=== PATIENT | female | born 1955 | race Caucasian/White ===

== ENCOUNTER → 2017-10-09 | Outpatient (CLI) | payer MEDICAID ==
[~2017-10-09] MED LIST: ACET-784 PO; ASPI-556 PO; CARB100C4 PO; DIVA250T25 PO; DOCU-119 PO; FAMO20TA8 PO; FERR324T4 PO; FLUO-191 PO; FLUP10 PO; FOLI1TAB15 PO; FURO20 PO; METO25 PO; MULT1TAB70 PO; POTA8TAB4 PO; SIMV20TA6 PO; THIO50 PO; TRAZ150T79 PO; TRIH2TAB3 PO
[2017-10-09 17:36] LABS: HEMATOCRIT 32.2 % (36-46); HEMOGLOBIN 11.1 g/dL (12.0-16.0)
[2017-10-09 17:38] LABS: CREATININE,URINE RANDOM 35.3 mg/dL (30.0-125.0)
[2017-10-09 17:44] LABS: CREATININE 2.21 mg/dL (0.60-1.30)
== END | disposition home or self-care (01) ==
LOC: LABPV 15:21
PROVIDERS: ATTEND Internal Medicine Nephrology
DX: D56.5 Hemoglobin E-beta thalassemia (principal); R79.89 Other specified abnormal findings of blood chemistry
CPT/HCPCS: 82570; 84156; 85014; 85018

== ENCOUNTER 2019-02-04 19:12 | Inpatient (IN) | payer MEDICAID, OTHER ==
[~2019-02-04] VITALS: Ht 157.5 cm; Wt 57.5 kg
[~2019-02-04 19:12] MED LIST changes: +DIVA-53 PO; -DIVA250T25 PO
[2019-02-04] MEDS ORDERED: SODIUM CHLORIDE 0.9% 1,000 ML IV ONE ×2 (20:15→22:00)
[2019-02-04 20:20] LABS: BASOPHILS % (AUTO) 0.8 % (0.0-2.0); EOSINOPHILS % (AUTO) 0.1 % (1.0-6.0); HEMATOCRIT 40.2 % (36-46); HEMOGLOBIN 13.2 g/dL (12.0-16.0); LYMPHOCYTES # (AUTO) 2.1 K/uL (1.0-4.8); LYMPHOCYTES % (AUTO) 21.7 % (22.0-44.0); MEAN CORPUSCULAR HEMOGLOBIN 32.2 pg (26.0-34.0); MEAN CORPUSCULAR HGB CONC 32.9 G/dL (31.0-37.0); MEAN CORPUSCULAR VOLUME 98 fL (80-100); MONOCYTES # (AUTO) 1.2 K/uL (0.1-1.0); MONOCYTES % (AUTO) 11.9 % (2.0-9.0); NEUTROPHILS # (AUTO) 6.3 K/uL (1.8-7.7); NEUTROPHILS % (AUTO) 65.5 % (40.0-70.0); PLATELET COUNT (AUTO) 271 K/uL (150-450); RED BLOOD CELL COUNT(AUTO) 4.11 MIL/uL (4.00-5.20); RED CELL DISTRIBUTION WIDTH 12.6 % (11.5-14.5)
[2019-02-04 20:30] LABS: CALCIUM, TOTAL 10.4 mg/dL (8.8-10.5); CREATININE 2.67 mg/dL (0.60-1.30); POTASSIUM 3.3 mmol/L (3.5-5.1)
[2019-02-04 20:37] LABS: TROPONIN I 0.17 ng/mL (0.00-0.05)
[2019-02-04 20:44] LABS: PROTHROMBIN TIME 10.2 SEC (9.4-11.6)
[2019-02-04 20:56] LABS: ALBUMIN 3.9 g/dL (3.4-5.0); BILIRUBIN,TOTAL 0.4 mg/dL (0.1-1.0); TOTAL PROTEIN, SERUM 7.5 g/dL (6.4-8.2)
[2019-02-04] MEDS ORDERED: ONDANSETRON HCL 4 MG/2 ML VIAL IVP PRN (22:00)
[2019-02-04] MEDS ORDERED: 0.9% SODIUM CHLORIDE 10 ML SYRINGE IVP PRN (22:00)
[2019-02-04] MEDS ORDERED: ACETAMINOPHEN 325 MG TABLET PO PRN (22:00)
[2019-02-04 22:21] LABS: APPEARANCE,URINE CLOUDY (CLEAR); BILIRUBIN,URINE NEGATIVE (NEGATIVE); GLUCOSE, URINE (UA) NEGATIVE (NEGATIVE); KETONES,URINE NEGATIVE (NEGATIVE); LEUKOCYTE ESTERASE ,URINE LARGE (NEGATIVE); OCCULT BLOOD,URINE SMALL (NEGATIVE); PROTEIN,URINE NEGATIVE (NEGATIVE); UROBILINOGEN,URINE 0.2 mg/dL (<=1.0)
[2019-02-04 22:48] LABS: BACTERIA,URINE Many /HPF (None Seen); NITRATE,URINE POSITIVE (NEGATIVE); SQUAMOUS EPITHELIAL CELL,UR Few /LPF (None Seen); WBC,URINE 26-50 /HPF (0-5)
[2019-02-05] MEDS: HEPARIN SODIUM,PORCINE 5,000 UNITS/ML VIAL SQ SCH ×4 (00:42→23:29)
[2019-02-05] MEDS: CefTRIAXone 1 GM/DEXTROSE 50 ML IV SCH ×2 (00:42→23:29)
[2019-02-05] MEDS ORDERED: ONDANSETRON HCL 4 MG/2 ML VIAL IVP PRN ×2 (00:45)
[2019-02-05] MEDS ORDERED: ACETAMINOPHEN 325 MG TABLET PO PRN (00:45)
[2019-02-05] MEDS ORDERED: CefTRIAXone 1 GM/DEXTROSE 50 ML IV SCH ×2 (00:45→01:00)
[2019-02-05] MEDS ORDERED: BISACODYL 10 MG RECTAL RECTAL SUPPOSITORY PR PRN ×2 (00:45)
[2019-02-05] MEDS ORDERED: ALBUTEROL SULFATE 2.5 MG/0.5 ML NEB SOLUTION NEB PRN ×2 (00:45)
[2019-02-05] MEDS ORDERED: ZOLPIDEM TARTRATE 5 MG TABLET PO PRN ×2 (00:45)
[2019-02-05] MEDS ORDERED: IPRATROPIUM BROMIDE 0.5 MG/2.5 ML NEB SOLUTION NEB PRN ×2 (00:45)
[2019-02-05] MEDS ORDERED: MAGNESIUM HYDROXIDE SUSPENSION 30 ML UDCUP PO PRN ×2 (00:45)
[2019-02-05 04:00] VITALS: BP 130/77
[2019-02-05 06:10] LABS: BASOPHILS % (AUTO) 0.9 % (0.0-2.0); EOSINOPHILS % (AUTO) 0.6 % (1.0-6.0); HEMATOCRIT 34.6 % (36-46); HEMOGLOBIN 11.3 g/dL (12.0-16.0); LYMPHOCYTES # (AUTO) 2.7 K/uL (1.0-4.8); LYMPHOCYTES % (AUTO) 30.4 % (22.0-44.0); MEAN CORPUSCULAR HEMOGLOBIN 32.4 pg (26.0-34.0); MEAN CORPUSCULAR HGB CONC 32.6 G/dL (31.0-37.0); MEAN CORPUSCULAR VOLUME 100 fL (80-100); MONOCYTES % (AUTO) 11.6 % (2.0-9.0); NEUTROPHILS % (AUTO) 56.5 % (40.0-70.0); PLATELET COUNT (AUTO) 219 K/uL (150-450); RED BLOOD CELL COUNT(AUTO) 3.48 MIL/uL (4.00-5.20); RED CELL DISTRIBUTION WIDTH 12.6 % (11.5-14.5)
[2019-02-05 06:26] LABS: ALBUMIN 3.4 g/dL (3.4-5.0); BILIRUBIN,TOTAL 0.2 mg/dL (0.1-1.0); CALCIUM, TOTAL 9.3 mg/dL (8.8-10.5); CREATININE 2.19 mg/dL (0.60-1.30); POTASSIUM 3.4 mmol/L (3.5-5.1)
[2019-02-05 08:00] VITALS: BP 119/62
[2019-02-05] MEDS ORDERED: HEPARIN SODIUM,PORCINE 5,000 UNITS/ML VIAL SQ SCH (08:00)
[2019-02-05] MEDS: FERROUS SULFATE 325 MG EC TABLET PO SCH (08:00)
[2019-02-05] MEDS: DOCUSATE SODIUM 100 MG CAPSULE PO SCH ×2 (08:56→19:59)
[2019-02-05] MEDS: POTASSIUM CHLORIDE 8 MEQ ER TABLET PO SCH (08:56)
[2019-02-05] MEDS: FAMOTIDINE 20 MG TABLET PO SCH (08:57)
[2019-02-05] MEDS: FOLIC ACID 1 MG TABLET PO SCH (08:57)
[2019-02-05] MEDS: MULTIVITAMINS, THERAPEUTIC TABLET PO SCH (08:57)
[2019-02-05] MEDS: METOPROLOL TARTRATE 25 MG TABLET PO SCH ×2 (08:57→19:59)
[2019-02-05] MEDS: ASPIRIN 81 MG EC TABLET PO SCH (08:57)
[2019-02-05] MEDS: FUROSEMIDE 20 MG TABLET PO SCH (08:58)
[2019-02-05] MEDS ORDERED: DOCUSATE SODIUM 100 MG CAPSULE PO SCH ×2 (09:00)
[2019-02-05] MEDS ORDERED: PNEUMOCOCCAL VACCINE POLYVALENT 0.5 ML VIAL [PPSV23] IM ONE (11:00)
[2019-02-05 12:00] VITALS: BP 116/63
[2019-02-05] MEDS ORDERED: SODIUM CHLORIDE 0.9% 1,000 ML IV ONE (14:15)
[2019-02-05 17:07] VITALS: BP 118/63
[2019-02-05] MEDS: ACETAMINOPHEN 325 MG TABLET PO PRN (19:58)
[2019-02-05] MEDS: SIMVASTATIN 20 MG TABLET PO SCH (19:59)
[2019-02-05 20:04] VITALS: BP 120/52
[2019-02-05 23:38] VITALS: BP 109/49
[2019-02-06 01:17] VITALS: BP 109/65
[2019-02-06 05:03] VITALS: BP 99/56
[2019-02-06 07:31] LABS: BASOPHILS % (AUTO) 0.6 % (0.0-2.0); EOSINOPHILS % (AUTO) 2.2 % (1.0-6.0); HEMATOCRIT 31.1 % (36-46); HEMOGLOBIN 10.3 g/dL (12.0-16.0); LYMPHOCYTES # (AUTO) 1.5 K/uL (1.0-4.8); LYMPHOCYTES % (AUTO) 20.3 % (22.0-44.0); MEAN CORPUSCULAR HEMOGLOBIN 32.6 pg (26.0-34.0); MEAN CORPUSCULAR VOLUME 99 fL (80-100); MONOCYTES # (AUTO) 0.6 K/uL (0.1-1.0); MONOCYTES % (AUTO) 8.1 % (2.0-9.0); NEUTROPHILS % (AUTO) 68.8 % (40.0-70.0); PLATELET COUNT (AUTO) 181 K/uL (150-450); RED BLOOD CELL COUNT(AUTO) 3.15 MIL/uL (4.00-5.20); RED CELL DISTRIBUTION WIDTH 12.4 % (11.5-14.5)
[2019-02-06 08:08] LABS: CREATININE 1.66 mg/dL (0.60-1.30); POTASSIUM 3.1 mmol/L (3.5-5.1)
[2019-02-06 08:10] VITALS: BP 100/58
[2019-02-06] MEDS: FUROSEMIDE 20 MG TABLET PO SCH (08:45)
[2019-02-06] MEDS: DOCUSATE SODIUM 100 MG CAPSULE PO SCH ×2 (08:45→20:46)
[2019-02-06] MEDS: POTASSIUM CHLORIDE 8 MEQ ER TABLET PO SCH (08:45)
[2019-02-06] MEDS: HEPARIN SODIUM,PORCINE 5,000 UNITS/ML VIAL SQ SCH ×2 (08:45→17:40)
[2019-02-06] MEDS: METOPROLOL TARTRATE 25 MG TABLET PO SCH ×2 (08:45→21:00)
[2019-02-06] MEDS: FAMOTIDINE 20 MG TABLET PO SCH (08:45)
[2019-02-06] MEDS: FERROUS SULFATE 325 MG EC TABLET PO SCH (08:46)
[2019-02-06] MEDS: ASPIRIN 81 MG EC TABLET PO SCH (08:46)
[2019-02-06] MEDS: MULTIVITAMINS, THERAPEUTIC TABLET PO SCH (08:46)
[2019-02-06] MEDS: FOLIC ACID 1 MG TABLET PO SCH (08:46)
[2019-02-06] MEDS: MORPHINE SULFATE 2 MG/ML SYRINGE IVP PRN ×2 (08:52→13:13)
[2019-02-06 17:41] VITALS: BP 98/52
[2019-02-06] MEDS: HYDROCODONE/ACETAMINOPHEN 5-325 MG TABLET PO PRN (19:00)
[2019-02-06 20:29] VITALS: BP 99/57
[2019-02-06] MEDS: SIMVASTATIN 20 MG TABLET PO SCH (20:47)
[2019-02-06 23:43] VITALS: BP 93/56
[2019-02-06] MEDS ORDERED: SODIUM CHLORIDE 0.9% 250 ML IV ONE (23:46)
[2019-02-06] MEDS: CefTRIAXone 1 GM/DEXTROSE 50 ML IV SCH (23:49)
[2019-02-07] MEDS: HEPARIN SODIUM,PORCINE 5,000 UNITS/ML VIAL SQ SCH ×4 (00:50→23:49)
[2019-02-07 04:12] VITALS: BP 119/67
[2019-02-07 07:52] VITALS: BP 123/65
[2019-02-07 08:08] LABS: BASOPHILS % (AUTO) 0.7 % (0.0-2.0); EOSINOPHILS % (AUTO) 2.4 % (1.0-6.0); HEMATOCRIT 29.1 % (36-46); HEMOGLOBIN 9.6 g/dL (12.0-16.0); LYMPHOCYTES # (AUTO) 1.3 K/uL (1.0-4.8); LYMPHOCYTES % (AUTO) 31.2 % (22.0-44.0); MEAN CORPUSCULAR HEMOGLOBIN 32.5 pg (26.0-34.0); MEAN CORPUSCULAR HGB CONC 32.9 G/dL (31.0-37.0); MEAN CORPUSCULAR VOLUME 99 fL (80-100); MONOCYTES # (AUTO) 0.4 K/uL (0.1-1.0); MONOCYTES % (AUTO) 9.1 % (2.0-9.0); NEUTROPHILS # (AUTO) 2.4 K/uL (1.8-7.7); NEUTROPHILS % (AUTO) 56.6 % (40.0-70.0); PLATELET COUNT (AUTO) 180 K/uL (150-450); RED BLOOD CELL COUNT(AUTO) 2.95 MIL/uL (4.00-5.20); RED CELL DISTRIBUTION WIDTH 12.5 % (11.5-14.5)
[2019-02-07] MEDS ORDERED: POTASSIUM CHLORIDE 20 MEQ ER TABLET PO ONE (08:15)
[2019-02-07] MEDS: POTASSIUM CHLORIDE 8 MEQ ER TABLET PO SCH (08:25)
[2019-02-07] MEDS: DOCUSATE SODIUM 100 MG CAPSULE PO SCH ×2 (08:26→20:26)
[2019-02-07] MEDS: FAMOTIDINE 20 MG TABLET PO SCH (08:26)
[2019-02-07 08:27] LABS: CALCIUM, TOTAL 8.9 mg/dL (8.8-10.5); CREATININE 1.74 mg/dL (0.60-1.30); POTASSIUM 3.2 mmol/L (3.5-5.1)
[2019-02-07] MEDS: METOPROLOL TARTRATE 25 MG TABLET PO SCH ×2 (08:27→21:00)
[2019-02-07] MEDS: FOLIC ACID 1 MG TABLET PO SCH (08:27)
[2019-02-07] MEDS: MULTIVITAMINS, THERAPEUTIC TABLET PO SCH (08:28)
[2019-02-07] MEDS: FERROUS SULFATE 325 MG EC TABLET PO SCH (08:28)
[2019-02-07] MEDS: ASPIRIN 81 MG EC TABLET PO SCH (08:29)
[2019-02-07] MEDS: FUROSEMIDE 20 MG TABLET PO SCH (08:29)
[2019-02-07] MEDS: CIPROFLOXACIN HCL 250 MG TABLET PO SCH ×2 (10:13→20:26)
[2019-02-07 16:43] VITALS: BP 92/54
[2019-02-07 20:17] VITALS: BP 95/59
[2019-02-07] MEDS: SIMVASTATIN 20 MG TABLET PO SCH (20:26)
[2019-02-07 23:44] VITALS: BP 88/57
[2019-02-07] MEDS: CefTRIAXone 1 GM/DEXTROSE 50 ML IV SCH (23:49)
[2019-02-08] VITALS (7 sets, daily range): BP systolic 85–102; BP diastolic 46–64
[2019-02-08] MEDS ORDERED: SODIUM CHLORIDE 0.9% 1,000 ML IV ONE (00:30)
[2019-02-08 07:43] LABS: BASOPHILS % (AUTO) 1.6 % (0.0-2.0); EOSINOPHILS % (AUTO) 3.2 % (1.0-6.0); HEMATOCRIT 36.2 % (36-46); HEMOGLOBIN 11.6 g/dL (12.0-16.0); LYMPHOCYTES # (AUTO) 1.8 K/uL (1.0-4.8); LYMPHOCYTES % (AUTO) 36.8 % (22.0-44.0); MEAN CORPUSCULAR VOLUME 100 fL (80-100); MONOCYTES # (AUTO) 0.7 K/uL (0.1-1.0); MONOCYTES % (AUTO) 13.7 % (2.0-9.0); NEUTROPHILS # (AUTO) 2.2 K/uL (1.8-7.7); NEUTROPHILS % (AUTO) 44.7 % (40.0-70.0); PLATELET COUNT (AUTO) 158 K/uL (150-450); RED BLOOD CELL COUNT(AUTO) 3.62 MIL/uL (4.00-5.20); RED CELL DISTRIBUTION WIDTH 12.6 % (11.5-14.5)
[2019-02-08] MEDS: FUROSEMIDE 20 MG TABLET PO SCH (08:18)
[2019-02-08] MEDS: METOPROLOL TARTRATE 25 MG TABLET PO SCH ×2 (08:18→21:00)
[2019-02-08] MEDS: FAMOTIDINE 20 MG TABLET PO SCH (08:22)
[2019-02-08] MEDS: FERROUS SULFATE 325 MG EC TABLET PO SCH (08:22)
[2019-02-08] MEDS: DOCUSATE SODIUM 100 MG CAPSULE PO SCH ×2 (08:22→20:06)
[2019-02-08] MEDS: CIPROFLOXACIN HCL 250 MG TABLET PO SCH ×2 (08:22→20:06)
[2019-02-08] MEDS: ASPIRIN 81 MG EC TABLET PO SCH (08:22)
[2019-02-08] MEDS: POTASSIUM CHLORIDE 8 MEQ ER TABLET PO SCH (08:22)
[2019-02-08] MEDS: FOLIC ACID 1 MG TABLET PO SCH (08:22)
[2019-02-08] MEDS: MULTIVITAMINS, THERAPEUTIC TABLET PO SCH (08:22)
[2019-02-08] MEDS: HEPARIN SODIUM,PORCINE 5,000 UNITS/ML VIAL SQ SCH ×3 (08:23→23:59)
[2019-02-08 08:35] LABS: CALCIUM, TOTAL 8.5 mg/dL (8.8-10.5); CREATININE 1.62 mg/dL (0.60-1.30); POTASSIUM 4.1 mmol/L (3.5-5.1)
[2019-02-08] MEDS: SIMVASTATIN 20 MG TABLET PO SCH (20:06)
[2019-02-09] MEDS: ACETAMINOPHEN 325 MG TABLET PO PRN ×2 (04:44→23:20)
[2019-02-09 05:13] VITALS: BP 92/57
[2019-02-09 08:10] VITALS: BP 129/76
[2019-02-09] MEDS: HEPARIN SODIUM,PORCINE 5,000 UNITS/ML VIAL SQ SCH ×2 (08:14→15:50)
[2019-02-09] MEDS: FOLIC ACID 1 MG TABLET PO SCH (08:15)
[2019-02-09] MEDS: FAMOTIDINE 20 MG TABLET PO SCH (08:15)
[2019-02-09] MEDS: ASPIRIN 81 MG EC TABLET PO SCH (08:15)
[2019-02-09] MEDS: DOCUSATE SODIUM 100 MG CAPSULE PO SCH ×2 (08:15→19:30)
[2019-02-09] MEDS: CIPROFLOXACIN HCL 250 MG TABLET PO SCH ×2 (08:15→19:30)
[2019-02-09] MEDS: POTASSIUM CHLORIDE 8 MEQ ER TABLET PO SCH (08:15)
[2019-02-09] MEDS: MULTIVITAMINS, THERAPEUTIC TABLET PO SCH (08:15)
[2019-02-09] MEDS: FERROUS SULFATE 325 MG EC TABLET PO SCH (08:15)
[2019-02-09] MEDS: METOPROLOL TARTRATE 25 MG TABLET PO SCH ×2 (08:16→19:30)
[2019-02-09] MEDS: FUROSEMIDE 20 MG TABLET PO SCH (08:16)
[2019-02-09 15:40] VITALS: BP 130/86
[2019-02-09] MEDS: HYDROCODONE/ACETAMINOPHEN 5-325 MG TABLET PO PRN (15:50)
[2019-02-09] MEDS: SIMVASTATIN 20 MG TABLET PO SCH (19:30)
[2019-02-09 20:21] VITALS: BP 109/62
[2019-02-09 23:21] VITALS: BP 95/61
[2019-02-10] MEDS: HEPARIN SODIUM,PORCINE 5,000 UNITS/ML VIAL SQ SCH ×3 (00:22→16:23)
[2019-02-10 05:57] VITALS: BP 104/60
[2019-02-10] MEDS: CIPROFLOXACIN HCL 250 MG TABLET PO SCH ×2 (08:21→19:54)
[2019-02-10] MEDS: MULTIVITAMINS, THERAPEUTIC TABLET PO SCH (08:21)
[2019-02-10] MEDS: DOCUSATE SODIUM 100 MG CAPSULE PO SCH ×2 (08:21→19:39)
[2019-02-10] MEDS: FUROSEMIDE 20 MG TABLET PO SCH (08:22)
[2019-02-10] MEDS: ASPIRIN 81 MG EC TABLET PO SCH (08:22)
[2019-02-10] MEDS: FAMOTIDINE 20 MG TABLET PO SCH (08:22)
[2019-02-10] MEDS: FERROUS SULFATE 325 MG EC TABLET PO SCH (08:22)
[2019-02-10] MEDS: METOPROLOL TARTRATE 25 MG TABLET PO SCH ×2 (08:22→19:39)
[2019-02-10] MEDS: FOLIC ACID 1 MG TABLET PO SCH (08:25)
[2019-02-10] MEDS: HYDROCODONE/ACETAMINOPHEN 5-325 MG TABLET PO PRN (08:25)
[2019-02-10] MEDS: POTASSIUM CHLORIDE 8 MEQ ER TABLET PO SCH (08:27)
[2019-02-10 09:20] VITALS: BP 102/53
[2019-02-10 12:37] VITALS: BP 109/63
[2019-02-10 16:06] VITALS: BP 92/57
[2019-02-10 19:33] VITALS: BP 130/73
[2019-02-10] MEDS: SIMVASTATIN 20 MG TABLET PO SCH (19:39)
[2019-02-10] MEDS: ACETAMINOPHEN 325 MG TABLET PO PRN (20:07)
== END 2019-02-10 20:30 | DRG 52 ==
LOC: EMS 19:12 → ICU 22:00 → 6N 02-05 15:50 → 6S 02-07 11:51
PROVIDERS: ADMIT Hospitalist; ATTEND Hospitalist
DX: G93.41 Metabolic encephalopathy (principal); N17.9 Acute kidney failure, unspecified; R65.10 Systemic inflammatory response syndrome (SIRS) of non-infectious origin without acute organ dysfunction; N39.0 Urinary tract infection, site not specified; E86.0 Dehydration; E78.5 Hyperlipidemia, unspecified; F32.9 Major depressive disorder, single episode, unspecified; E78.00 Pure hypercholesterolemia, unspecified; Z86.73 Personal history of transient ischemic attack (TIA), and cerebral infarction without residual deficits; Z79.899 Other long term (current) drug therapy; Z79.82 Long term (current) use of aspirin
CPT/HCPCS: 70450; 83605; 87040; 87081; 87086; 92610; 93005; 97110; 97163; 97530; G0378; J0696; J1644; J2270; J7030; J7050